=== PATIENT | female | born 1955 | race Caucasian/White ===

== ENCOUNTER 2022-01-27 20:10 | Inpatient (IN) | payer OTHER ==
[~2022-01-27] VITALS: Ht 152.4 cm; Wt 95.3 kg
--- NOTE | 2022-01-27 16:49 | NUR ---
DC PLANNIN YRS OLD FEMALE PATIENT WAS ADMITTED FROM HOME WITH A DX OF NSTEMI. PATIENT HAS A HX OF DM, CHRONIC KIDNEY DISEASE AND CHF. CXR SHOWED BILATERAL PULMONARY OPACITIES MAY REPRESENT PULMONARY EDEMA. RAPID COVID TEST NEGATIVE. ON BIPAP FIO2 80%. ADMINISTERED HEPARIN DRIP, IV ABX ROCEPHIN AND AZITHROMYCIN , LASIX IV AND PRECEDEX DRIP. CONSULTED WITH NEPHRO AND PULMO. DC PLAN PER PATIENT RESPOND TO THE TREATMENT. CM TO FOLLOW Addendum: 01/30/22 at 1156 by Nicol Saleh RN DC PLANNING: PATIENT INTUBATED SEDATED BY PULMO DR STREET. CONTINUED IV ABX VANCOMYCIN AND MERREM , PRECEDEX DRIP AND HEPARIN DRIP. PULMO,NEPHRO AND CARDIO FOLLOWING. CM TO FOLLOW
[~2022-01-27 20:10] MED LIST: ETOMIDATE 20 MG/10 ML VIAL IVP ONE; ROCURONIUM 50 MG/5 ML VIAL IV ONE
--- NOTE | 2022-01-27 20:10 | NUR ---
PT BRITTANI ALS. TAKEN TO BED 10
--- NOTE | 2022-01-27 20:12 | NUR ---
Respiratory Therapist at bedside for respiratory intervention.
[2022-01-27 20:17] VITALS: BP 102/83
[2022-01-27 20:18] VITALS: BP 201/114
[2022-01-27] MEDS ORDERED: cefTRIAXone 1,000 MG in DEXT 5% MINI-BAG PLUS 50 ML IV ONE (20:35)
[2022-01-27] MEDS ORDERED: FUROSEMIDE 40 MG/4 ML VIAL IVP ONE ×3 (20:35→21:30)
--- NOTE | 2022-01-27 20:48 | NUR ---
CONTACT INFO LEFT BY VANNA MAN
--- NOTE | 2022-01-27 20:52 | NUR ---
2018 placed pt on bipap with settings of ipap 14 epap 6 rr 14 fio2 100%. pt placed on size medium mask. pt bs bilat rales
[2022-01-27] MEDS ORDERED: cefTRIAXone 1,000 MG VIAL ONE (21:07)
[2022-01-27 21:08] LABS: BASOPHILS # (AUTO) 0.2 K/uL (0.00-0.22); BASOPHILS % (AUTO) 1.2 % (0.0-2.0); EOSINOPHILS # (AUTO) 0.6 K/uL (0-0.4); EOSINOPHILS % (AUTO) 3.1 % (0.0-4.0); HEMATOCRIT 43.8 % (36-48); HEMOGLOBIN 13.9 g/dL (12.0-16.0); LYMPHOCYTES # (AUTO) 7.5 K/uL (2.5-16.5); LYMPHOCYTES % (AUTO) 38.8 % (20.5-51.1); MEAN CORPUSCULAR HEMOGLOBIN 28 pg (27-31); MEAN CORPUSCULAR HGB CONC 32 g/dL (33-37); MEAN CORPUSCULAR VOLUME 87.6 fL (80-94); MONOCYTES # (AUTO) 0.9 K/uL (0.8-1.0); MONOCYTES % (AUTO) 4.8 % (1.7-9.3); NEUTROPHILS # (AUTO) 10.1 K/uL (1.8-7.7); NEUTROPHILS % (AUTO) 52.1 % (42.2-75.2); PLATELET COUNT (AUTO) 365 K/uL (140-450); RED CELL DISTRIBUTION WIDTH 16.2 % (11.6-13.7); WHITE BLOOD COUNT (AUTO) 19.3 K/uL (4.8-10.8)
--- NOTE | 2022-01-27 21:21 | NUR ---
ERMD NOTIFIED OF SATTING 88% RT AT BEDSIDE
[2022-01-27 21:30] LABS: ALBUMIN 2.6 g/dL (3.4-5.0); ANION GAP 25.2 (8-16); CARBON DIOXIDE 12.9 mmol/L (21-32); CREATININE 2.2 mg/dL (0.6-1.3); POTASSIUM 4.1 mmol/L (3.5-5.1); TOTAL BILIRUBIN 0.4 mg/dL (0.0-1.0)
[2022-01-27] MEDS ORDERED: LORazepam 2 MG/ML VIAL IVP ONE (21:30)
[2022-01-27] MEDS ORDERED: INSULIN REGULAR, HUMAN 100 UNIT/ML VIAL IVP ONE (21:40)
[2022-01-27 21:55] VITALS: BP 172/88
--- NOTE | 2022-01-27 22:09 | NUR ---
PT GAVE PERMISSION TO GIVE UPDATES TO TAWANDA, VANNA. [phone]
[2022-01-27] MEDS: AZITHROMYCIN 500 MG in DEXTROSE 5% 250 ML IV SCH (22:15)
[2022-01-27] MEDS ORDERED: ONDANSETRON 4 MG/2 ML VIAL IVP PRN (22:15)
[2022-01-27] MEDS ORDERED: POTASSIUM CHLORIDE 10 MEQ TABER PO PRN (22:15)
[2022-01-27] MEDS ORDERED: ACETAMINOPHEN 325 MG TAB PO PRN (22:15)
[2022-01-27] MEDS ORDERED: HYDROcodone/APAP 5/325 MG 1 TAB TAB PO PRN (22:15)
[2022-01-27] MEDS ORDERED: MAGNESIUM OXIDE 400 MG TAB PO PRN (22:15)
[2022-01-27] MEDS ORDERED: POTASSIUM CHL 40 MEQ/ D5-1/2NS 1,000 ML IV SCH (22:15)
[2022-01-27] MEDS ORDERED: DEXTROSE 50% 50 ML SYR IVP PRN (22:20)
[2022-01-27] MEDS ORDERED: INSULIN LISPRO SLIDING SCALE 100 UNITS/ML VIAL SUBQ PRN (22:20)
[2022-01-27] MEDS ORDERED: FURO20TA8 PO (22:31)
[2022-01-27] MEDS ORDERED: FERR325E14 PO (22:31)
[2022-01-27] MEDS ORDERED: ISOS60TE70 PO (22:31)
[2022-01-27] MEDS ORDERED: FEBU40TA PO (22:31)
[2022-01-27] MEDS ORDERED: ASPI-1822 PO (22:31)
[2022-01-27] MEDS ORDERED: SIMV-372 PO (22:31)
[2022-01-27] MEDS ORDERED: LOSA100T1 PO (22:31)
[2022-01-27] MEDS ORDERED: NITROGLYCERIN 0.4 MG TAB SL ONE (22:35)
--- NOTE | 2022-01-27 23:00 | NUR ---
ADMITTED PT FROM ER. REPORT GIVEN BY HELP DESK SUPPORT VERONICA. PT'S A/O, ON BIPAP 14/6, BUR 14, FI02 100% SATS >95%. PT ADMITTED FOR NSTEMI, AFIB ON THE MONITOR CONTROLLED WITH HR OF 90, SBP 150'S, PT DENIES PAIN. GIVEN CHG BATH. ON PUREWICK. ORIENTED TO ROOM/UNIT. NO SKIN BREAKDOWN. JUST SKIN DISCOLORATION ON ALL BODY AREAS. 2330: DR. MONET FROM ER ORDERED MIDLINE PT'S HARD STICK. 2335: PHONE CALL TO DR HINTON, CHEF SAUCIER FOR TORY FRAUSTO TO INSERT PICC LINE/MIDLINE AND DE LOS SANTOS CATHETER. 2355: MIDLINE ON THE CAITLYN 2X LUMEN INSERTED BY PICC LINE REGINA WU.
--- NOTE | 2022-01-27 23:00 | NUR ---
ASSISTED IN TRANSPORT OF PT ON BI-PAP FROM ER BED #10 TO ICU BED #2. PT IS TOLERATING BI-PAP AND IS IN NO DISTRESS AT THIS TIME. TRANSFER OF CARE TO RT MARY ANN, AT THIS TIME.
--- NOTE | 2022-01-27 23:02 | NUR ---
Patient will be admitted to care of DR LARIOS. Admited to ICU. Will go to room ICU 2. Belongings list completed. Report to TATIANA TAPIA.
[2022-01-27] MEDS ORDERED: AZITHROMYCIN 500 MG INJ VIAL IV ONE (23:44)
[2022-01-28] VITALS (22 sets, daily range): BP systolic 100–156; BP diastolic 35–87
[2022-01-28] MEDS ORDERED: NITROGLYCERIN 0.4 MG TAB SL ONE (00:51)
--- NOTE | 2022-01-28 01:00 | NUR ---
0045: BLOOD SUGAR CHECKED RESULT= OR 0100: RE CHECKED BLOOD SUGAR = OR INITIATED PROTOCOL, ORDERED LAB DRAW
[2022-01-28 01:23] LABS: ANION GAP 22.8 (8-16); CARBON DIOXIDE 17.3 mmol/L (21-32); CREATININE 2.4 mg/dL (0.6-1.3); POTASSIUM 5.1 mmol/L (3.5-5.1)
[2022-01-28] MEDS ORDERED: hePARIN / DEXT 5% PREMIX 250 ML IV SCH (01:35)
[2022-01-28] MEDS ORDERED: HEPARIN PER PHARMACY MC PRN (01:35)
[2022-01-28] MEDS ORDERED: INSULIN LANTUS 100 UNITS/ML 10 ML VIAL SUBQ SCH (01:35)
--- NOTE | 2022-01-28 01:35 | NUR ---
PHONE CALL TO DR HINTON, IDENTIFICATION CLERK FOR DR LARIOS.MADE AWARE FAMILY AT BEDSIDE, PRIMARY RN TATIANA TOOK BLOOD SUGAR,IT READS "HI" ON THE MACHINE TWICE,BMP ORDERED, RESULT CAME BACK 692.ORDERED TO GIVE 15 UNITS LANTUS X ONE DOSE ONLY,NOW.ALSO NOTIFED DR HINTON REGARDING TROPONIN LEVEL 5758, SALES ENGINEERING MANAGER ALREADY PAGED DR JAIMES, AWAITING CALL BACK, MD AWARE PT HAS HEPARIN SUBQ Q12HRS, CHANGED HEPARIN DRIP PER PHARMACY.TATIANA AWARE
--- NOTE | 2022-01-28 01:36 | NUR ---
LOWERED FIO2 TO 80%. SATS 100%.
[2022-01-28] MEDS: MORPHINE SULFATE 4 MG/ML SYR IVP PRN ×3 (02:49→17:01)
[2022-01-28] MEDS ORDERED: hePARIN / DEXT 5% PREMIX 250 ML IV ONE (02:51)
[2022-01-28] MEDS ORDERED: hePARIN / DEXT 5% PREMIX 250 ML IV PRN (03:06)
[2022-01-28] MEDS ORDERED: ALBUTEROL SULFATE/IPRATROPIU 3 ML SOL IH PRN (03:10)
--- NOTE | 2022-01-28 03:10 | NUR ---
dr brito called to get order for breathing tx. dr mustapha mendoza q4prn
[2022-01-28] MEDS ORDERED: ALBUTEROL SULFATE/IPRATROPIU 3 ML SOL IH ONE (03:13)
--- NOTE | 2022-01-28 03:44 | NUR ---
0332 stat ekg done. results given to arias
--- NOTE | 2022-01-28 03:55 | NUR ---
LATANYA WADSWORTH CALLED. READ EKG RESULTS, REPORTED PT'S CARDIAC STATUS AND OTHER RELATED UPDATES. ORDERED TO STOP IVF, GIVE ONE TIME LASIX 40MG IVP, ORDERED INPATIENT STATUS, CODE STATUS MODIFIED NO INTUBATION SIGNED BY PT'S DAUGHTER [place]/PRIMARY EMERGENCY CONTACT. 0410: ROLL FORGER CALLED DR. JOHNSON/GUNNAR FOR AN UPDATES AND ALSO GIVEN AN ORDER TO ROLL FORGERREGINA GAVIRIA..
[2022-01-28] MEDS ORDERED: FUROSEMIDE 20 MG/2 ML VIAL IVP SCH (04:05)
[2022-01-28] MEDS ORDERED: INSULIN REGULAR, HUMAN 100 UNIT/ML VIAL SUBQ SCH (04:10)
--- NOTE | 2022-01-28 04:10 | NUR ---
PHONE CALL MADE TO DR JOHNSON, PULMO MECHANICAL TEST ENGINEER, UPDATED ON PTS PRESENT CONDITION.MADE AWARE THAT PT WAS ADMITTED LAST NIGHT TELEMETRY STATUS DX NSTEMI, PT IS ON CONTINUOUS BIPAP FIO2 100%.TELE STATUS CHANGED TO ICU.ALSO NOTIFIED DR JOHNSON RE; BLOOD SUGAR CHECK , BMP READING 692, GIVEN [address] HINTON BUT PER AVILA MARTINEZ, PTS DAUGHTER, PT IS RECEIVING REGULAR INSULIN 30 UNITS IF BS IS ON THE 300'S AND 40 TO 50 UNITS IF MORE THAT 400 BLOOD SUGAR, DR JOHNSON ORDERED TO GIVE 20 UNITS REGULAR INSULIN NOW.ALSO ORDERED ABG AT 0700 AND CXR.TATIANA TAPIA AWARE
--- NOTE | 2022-01-28 04:14 | NUR ---
0250 UNABLE TO GET ABG. [address] DAVISON
--- NOTE | 2022-01-28 04:25 | NUR ---
FAMILIES AT THE BEDSIDE. DR. JOHNSON ORDERED TO GIVE 20 UNITS OF REGULAR INSULIN FOR "HI" FINGER STICK GLUCOSE READING. CONTINUE MONITOR.
[2022-01-28 05:34] LABS: BASOPHILS # (AUTO) 0.1 K/uL (0.00-0.22); BASOPHILS % (AUTO) 0.2 % (0.0-2.0); HEMATOCRIT 39.5 % (36-48); HEMOGLOBIN 12.1 g/dL (12.0-16.0); LYMPHOCYTES # (AUTO) 0.7 K/uL (2.5-16.5); MEAN CORPUSCULAR HEMOGLOBIN 27 pg (27-31); MEAN CORPUSCULAR HGB CONC 31 g/dL (33-37); MEAN CORPUSCULAR VOLUME 89.5 fL (80-94); MONOCYTES # (AUTO) 1.7 K/uL (0.8-1.0); MONOCYTES % (AUTO) 4.9 % (1.7-9.3); NEUTROPHILS # (AUTO) 31.6 K/uL (1.8-7.7); NEUTROPHILS % (AUTO) 92.9 % (42.2-75.2); PLATELET COUNT (AUTO) 317 K/uL (140-450); RED BLOOD CELL COUNT(AUTO) 4.42 MIL/uL (4.20-5.40); RED CELL DISTRIBUTION WIDTH 15.8 % (11.6-13.7)
--- NOTE | 2022-01-28 07:03 | NUR ---
ENDORSED PT TO AM RN PAM TO ASSUME PLAN OF CARE. FAMILIES AT THE BEDSIDE. RESTING COMFORTABLE WITH STABLE VITAL SIGNS.
--- NOTE | 2022-01-28 07:10 | NUR ---
RECEIVED BEDSIDE REPORT FROM ANNA, INVENTORY CONTROLLER, FOR CONTINUITY OF CARE. PT A/OX4, PUPIL ROUND REACTIVE TO LIGHT IN LEFT EYE AND CLOUDY/BLUE HAZE IN RIGHT EYE. SLOVENIAN SPEAKING ONLY. BIPAP IN PLACE, FIO2 80%, IPAP 14, EPAP 6, R 14. SATURATION 96%. ATRIAL FLUTTER ON MONITOR. MIDLINE TO CAITLYN INFUSING HEPARIN DRIP AT 1000 UNITS/HR AND NS TKO. BOWEL SOUNDS HYPOACTIVE. F/C TO GRAVITY DRAINING CLEAR LIGHT YELLOW URINE. MODERATE WEAKNESS THROUGHOUT. STANDARD PRECAUTION. CALL LIGHT WITHIN REACH, BED LOCKED AND IN LOWEST POSITION.
[2022-01-28] MEDS ORDERED: BLOOD GLUCOSE MONITORING 1 DEV DEV FS SCH (07:30)
[2022-01-28] MEDS: ASPIRIN 81 MG TAB.CHEW PO SCH (08:19)
[2022-01-28] MEDS: DOCUSATE SODIUM 100 MG GELCAP PO SCH (08:19)
[2022-01-28] MEDS: ATORVASTATIN 20 MG TAB PO SCH (08:19)
--- NOTE | 2022-01-28 08:45 | NUR ---
MESSAGED Igor SENA CONCERNING BLOOD GLUCOSE GREATER THAN 600 AND GAP 22.8. ORDERED TO START DKA PROTOCOL WITH INSULIN DRIP.
[2022-01-28] MEDS ORDERED: DEXT 5% / NACL 0.45% 1,000 ML IV SCH (08:50)
[2022-01-28] MEDS: BLOOD GLUCOSE MONITORING 1 DEV DEV FS SCH ×16 (08:50→23:50)
[2022-01-28] MEDS ORDERED: NACL 0.9% 1,000 ML IV SCH (08:50)
[2022-01-28] MEDS ORDERED: DEXTROSE 50% 50 ML SYR IVP PRN (08:50)
[2022-01-28] MEDS ORDERED: FUROSEMIDE 40 MG/4 ML VIAL IVP SCH (09:00)
--- NOTE | 2022-01-28 09:50 | NUR ---
SEEN AND EXAMINED BY Raven JONES. ORDERED TO DC FLUIDS FROM DKA PROTOCOL AND INFUSE INSULIN WITHOUT FLUIDS DUE TO FLUID OVERLOAD. ALSO ORDERED TO CHANGE LASIX FROM BID TO TID.
--- NOTE | 2022-01-28 10:07 | NUR ---
PATIENT HAS BEEN SCREENED AND CATEGORIZED HIGH NUTRITION RISK. PATIENT WILL BE SEEN WITHIN 1-2 DAYS OF ADMISSION. 01/27/22-01/29/22 RE[address] BY [address]ELY TAME[address] RD
[2022-01-28 10:20] LABS: PROTHROMBIN TIME 11.7 secs (10.8-13.4)
[2022-01-28] MEDS: INSULIN REGULAR, HUMAN 100 UNIT in NACL 0.9% 100 ML IV SCH ×4 (10:30→20:28)
--- NOTE | 2022-01-28 10:30 | NUR ---
STARTED INSULIN DRIP PER MD ORDERS. INITIATED 9 UNIT BOLUS OF HUMULIN R IVP PER PROTOCOL. INSULIN DRIP AT 0.1 UNITS/KG/HR PER PROTOCOL AND WITHOUT FLUIDS PER MD ORDER.
--- NOTE | 2022-01-28 11:04 | NUR ---
SEEN AND EXAMINED BY Igor FARIAS WHO DISCUSSED WITH FAMILY POC AND COLLECTIVELY CHANGED CODE STATUS FROM MODIFIED CODE TO DNR.
--- NOTE | 2022-01-28 11:17 | NUR ---
PTT RESULTED AT 107.6. HEPARIN DRIP HELD FOR NOW.
--- NOTE | 2022-01-28 12:00 | NUR ---
FAMILY DECIDED TO CHANGE CODE STATUS TO FULL CODE. Igor FARIAS NOTIFIED. SEE POLST FORM IN PAPER CHART.
--- NOTE | 2022-01-28 12:20 | NUR ---
RESUMED HEPARIN DRIP AT 200 UNITS/HR PER PROTOCOL.
[2022-01-28] MEDS: FUROSEMIDE 40 MG/4 ML VIAL IVP SCH ×2 (13:07→17:01)
[2022-01-28] MEDS: LORazepam 2 MG/ML VIAL IVP PRN (13:27)
--- NOTE | 2022-01-28 14:51 | NUR ---
HEPARIN ORDER CLARIFICATION, INCREASED HEPARIN DRIP TO 800 UNITS/HR PER PROTOCOL.
[2022-01-28 15:31] LABS: ANION GAP 22.1 (8-16); CARBON DIOXIDE 14.8 mmol/L (21-32); CREATININE 3.4 mg/dL (0.6-1.3); POTASSIUM 5.9 mmol/L (3.5-5.1)
--- NOTE | 2022-01-28 15:38 | NUR ---
SAW FEEDER AT BEDSIDE FOR KIDNEY US.
--- NOTE | 2022-01-28 15:50 | NUR ---
SEEN AND EXAMINED BY DR. JAIMES.
--- NOTE | 2022-01-28 16:04 | NUR ---
SEEN AND EXAMINED BY Igor SENA NO NEW ORDERS.
[2022-01-28] MEDS: hePARIN / DEXT 5% PREMIX 250 ML IV SCH (16:40)
--- NOTE | 2022-01-28 16:40 | NUR ---
01/28/2022 RD INITIAL ASSESSMENT COMPLETED. PLEASE REFER TO NUTRITION ASSESSMENT UNDER CARE ACTIVITY FOR ESTIMATED NUTRITIONAL NEEDS. 1.WHEN IF MEDICALLY APPROPRIATE, RECOMMEND CCHO DIET 2.MONITOR NPO STATUS AND BLOOD GLUCOSE 3.RD TO FOLLOW-UP IN 3-5 DAYS PATIENT IS MODERATE RISK. BONITA SARAVIA RD
[2022-01-28 16:46] LABS: ANION GAP 19.1 (8-16); CARBON DIOXIDE 18.4 mmol/L (21-32); CREATININE 3.4 mg/dL (0.6-1.3); POTASSIUM 4.5 mmol/L (3.5-5.1)
[2022-01-28 17:03] LABS: MAGNESIUM 1.6 mg/dL (1.8-2.4); PHOSPHORUS 2.9 mg/dL (2.5-4.9)
--- NOTE | 2022-01-28 19:20 | NUR ---
ENDORSED BEDSIDE REPORT TO TITUS INDUSTRIAL THERAPIST RN, FOR CONTINUITY OF CARE.
--- NOTE | 2022-01-28 19:30 | NUR ---
RCVD PT FROM DAY RT. PT ASLEEP ON BIPAP 03/09 80% WITH SPO2 99%. NO SIGNS OF RESP DISTRESS AT THIS TIME. SKIN INTACT. NO PRN TREATMENT NEEDED. WILL CONTINUE TO MONITOR.
--- NOTE | 2022-01-28 19:40 | NUR ---
RECEIVED REPORT FROM AM SHIFT RN ONEIL. PT A&O X4. BIPAP SETTINGS 80 IPAP 15 EPAP 6. NPO DIET. DE LOS SANTOS CATHETER INTACT AND FLOWING WELL. SR TO BEDSIDE MONITOR WITH WIDE QRS. PERIPHERAL PULSES FELT TO ALL EXTREMITIES. MIDLINE TO CAITLYN. INSULIN DRIP 0.1 MCG/KG/HR/. HEPARIN DRIP 930 UI/HR. SKIN IS INTACT. NO S/SX PAIN AT THIS TIME. FLACC 0.
[2022-01-28 20:35] LABS: MAGNESIUM 1.5 mg/dL (1.8-2.4); PHOSPHORUS 2.8 mg/dL (2.5-4.9)
[2022-01-28 20:42] LABS: ANION GAP 15.8 (8-16); CARBON DIOXIDE 21.3 mmol/L (21-32); CREATININE 3.2 mg/dL (0.6-1.3); POTASSIUM 4.1 mmol/L (3.5-5.1)
[2022-01-28] MEDS: AZITHROMYCIN 500 MG in DEXTROSE 5% 250 ML IV SCH (21:27)
--- NOTE | 2022-01-28 21:34 | NUR ---
PHONE CALL TO CAFE OPERATOR, DIRECTOR HEALTH IS DR SUMANTH HAJI; MADE AWARE THAT BUN 65 AND CREATININE 3.2; NO NEW ORDERS FOR THAT LAB RESULT, ALSO MENTIONED TO DR HAJI REGARDING MAGNESIUM LEVEL 1.5, PT RECEIVED MAG 0X AT 1716 BUT THE PRN ORDER IS ONLY FOR MAGNESIUM 1.6 TO 1.8, PER SUMANTH CASTELLANOS "THIS TIME OF THE NIGHT IS NOT THE TIME TO REPLACE MAGNESIUM".
--- NOTE | 2022-01-28 23:00 | NUR ---
PM MEDS GIVEN. PT REPOSITIONED.
--- NOTE | 2022-01-28 23:59 | NUR ---
CRITICAL LAB VALUE REPORTED PTT 68.8 AND TROPONIN >14292. PAGED AND SPOKE TO DR. JAIMES. NO NEW ORDERS. STATED TO CONTINUE HEPARIN DRIP PER PROTOCOL.
[2022-01-29] VITALS (24 sets, daily range): BP systolic 97–161; BP diastolic 26–82
--- NOTE | 2022-01-29 | NUR ---
RECEIVED REPORT FROM DIALLO TAPIA PT IS N BI PAP AND CONTINOUSLY REACHING FOR THE CONNECTION . DIALLO HAD TO CONSTRAIN HER HDS MULTIPLE TIMES WHILE GIVING REPORT. SHORTLY AFTER REPORT WAS RECEIVED AT 1930 PT'S BI PAP STARTED RO LUCIA. UPON CHECKING THE REASON FOR THE ALARM ; PT HAD REMOVED THE BI PAP MASK COMPLETELY..IT WAS VERY DIFFICLUT REPLACING THE MASK PT PROVED TO BE VERY STRONG. PT HAD TOB RESTRAINED TEMPORARILY IN ORDER TO REPLACE THE BI PAP MASK THE PRECEDEX WAS INCRESED TTO 1MCG FROM /5MCG BUT IT DIDN'T HELP TO CALM PT DOWN. PAYAM WAS ESCORTED IN AND FOUND PT IN RESTRAINTS. EXPLAINED IR WAS A TEMPORARY MEASURE USED RO GET PT BACK ON THE BIPAP. THE RESTRAINRS WERE REMOVED AND PT WAS CALMED DOWN BY HER FAMILY MEMBERS.
--- NOTE | 2022-01-29 00:32 | NUR ---
PT REQUESTING A BREAK FROM TH BIPAP. PT STABLE WITH SPO2 98% ON 03/09 80%. PLACED PT ON NONREBREATHER. PT HR 87 WITH SPO2 93-94%. WILL CONTINUE TO MONITOR.
--- NOTE | 2022-01-29 00:44 | NUR ---
FAMILY AT BEDSIDE PT SPO2 DROPPED TO 87% PLACED PT BACK ON BIPAP 03/09 80% WITH SPO2 RETURNED TO 95%
[2022-01-29 00:47] LABS: ANION GAP 18.4 (8-16); CARBON DIOXIDE 19.6 mmol/L (21-32); CREATININE 3.2 mg/dL (0.6-1.3)
[2022-01-29 00:48] LABS: MAGNESIUM 1.5 mg/dL (1.8-2.4); PHOSPHORUS 2.5 mg/dL (2.5-4.9)
[2022-01-29] MEDS: BLOOD GLUCOSE MONITORING 1 DEV DEV FS SCH ×14 (01:19→21:18)
[2022-01-29 05:34] LABS: BASOPHILS # (AUTO) 0.1 K/uL (0.00-0.22); BASOPHILS % (AUTO) 0.5 % (0.0-2.0); HEMATOCRIT 34.3 % (36-48); HEMOGLOBIN 11.6 g/dL (12.0-16.0); LYMPHOCYTES % (AUTO) 7.3 % (20.5-51.1); MEAN CORPUSCULAR HEMOGLOBIN 27 pg (27-31); MEAN CORPUSCULAR HGB CONC 34 g/dL (33-37); MEAN CORPUSCULAR VOLUME 81.3 fL (80-94); MONOCYTES # (AUTO) 1.9 K/uL (0.8-1.0); MONOCYTES % (AUTO) 6.7 % (1.7-9.3); NEUTROPHILS # (AUTO) 23.6 K/uL (1.8-7.7); NEUTROPHILS % (AUTO) 85.5 % (42.2-75.2); PLATELET COUNT (AUTO) 258 K/uL (140-450); RED BLOOD CELL COUNT(AUTO) 4.22 MIL/uL (4.20-5.40); RED CELL DISTRIBUTION WIDTH 15.4 % (11.6-13.7)
[2022-01-29 05:43] LABS: WHITE BLOOD COUNT (AUTO) 27.7 K/uL (4.8-10.8)
[2022-01-29 06:27] LABS: ALBUMIN 2.3 g/dL (3.4-5.0); ANION GAP 17.4 (8-16); CREATININE 3.2 mg/dL (0.6-1.3); POTASSIUM 4.4 mmol/L (3.5-5.1); TOTAL BILIRUBIN 0.5 mg/dL (0.0-1.0)
[2022-01-29 06:29] LABS: MAGNESIUM 1.6 mg/dL (1.8-2.4); PHOSPHORUS 3.2 mg/dL (2.5-4.9)
[2022-01-29] MEDS: MORPHINE SULFATE 4 MG/ML SYR IVP PRN (06:51)
--- NOTE | 2022-01-29 07:30 | NUR ---
RECEIVED REPORT FROM TRANSLITERATOR NURSE
--- NOTE | 2022-01-29 08:00 | NUR ---
FAMILY AT BEDSIDE ASSISTING WITH PATIENT. PATIENT CONTINUOUSLY ATTEMPTING TO REMOVE BIPAP MASK. RASS +1 EXPLAINED THE IMPORTANCE OF BIPAP BUT PATIENT STATES "DOES NOT LIKE THE MASK ON FACE", TEACHING PATIENT AND FAMILY AT BEDSIDE COMPLETED REGARDING CHEST PAIN, RESTLESSNESS, AND TURNING EVERY TWO HOURS.
[2022-01-29] MEDS: hePARIN / DEXT 5% PREMIX 250 ML IV SCH (09:10)
[2022-01-29] MEDS: DOCUSATE SODIUM 100 MG GELCAP PO SCH (09:12)
[2022-01-29] MEDS: ASPIRIN 81 MG TAB.CHEW PO SCH (09:12)
[2022-01-29] MEDS: FUROSEMIDE 40 MG/4 ML VIAL IVP SCH ×2 (09:13→21:34)
[2022-01-29] MEDS: ATORVASTATIN 20 MG TAB PO SCH (09:13)
[2022-01-29] MEDS: INSULIN REGULAR, HUMAN 100 UNIT in NACL 0.9% 100 ML IV SCH ×2 (10:10)
--- NOTE | 2022-01-29 12:07 | NUR ---
LAB AT BEDSIDE FOR BMP, MAG, PHOS AND PTT PER MD ORDERS
[2022-01-29] MEDS: LORazepam 2 MG/ML VIAL IVP PRN ×2 (12:15→22:07)
--- NOTE | 2022-01-29 12:20 | NUR ---
DR MONTENEGRO AT BEDSIDE EVALUATING PATIENT. STATES HOLD THE ATIVAN IVP AND HE WILL START THE PRECEDEX DRIP FOR AGITATION/RESTLESSNESS.
--- NOTE | 2022-01-29 12:35 | NUR ---
RECEIVED ORDERS TO DISCONTINUE INSULIN DRIP
--- NOTE | 2022-01-29 12:37 | NUR ---
DISCONTINUED INSULIN DRIP. UPDATED FAMILY ON PLAN OF CARE.
[2022-01-29 12:45] LABS: CREATININE 3.1 mg/dL (0.6-1.3)
--- NOTE | 2022-01-29 12:45 | NUR ---
RECEIVED CRITICAL LAB VALUE FROM SHOE FOLDER PTT 60.4, NORMAL VALUE FOR HEPARIN DRIP AT 930 UNITS/HOUR, NO CHANGE IN DRIP RATE
[2022-01-29 12:49] LABS: MAGNESIUM 1.6 mg/dL (1.8-2.4); PHOSPHORUS 3.4 mg/dL (2.5-4.9)
[2022-01-29] MEDS: DEXMEDETOMIDINE HCL 400 MCG in NACL 0.9% 96 ML IV PRN ×2 (12:50→22:12)
[2022-01-29] MEDS: INSULIN LANTUS 100 UNITS/ML 10 ML VIAL SUBQ SCH ×2 (13:01→21:33)
[2022-01-29] MEDS: BRIMONIDINE TARTRATE 0.2% OP 5 ML BTL OP SCH ×2 (13:23→17:09)
--- NOTE | 2022-01-29 14:00 | NUR ---
CARDIAC RHYTHM CHANGED TO NSR HR 80'S. RASS 0 TO -1 RESTING QUIETLY.
--- NOTE | 2022-01-29 14:40 | NUR ---
NV PLANNING SW OUTREACHED TO PATIENTS EMERGENCY CONTACT, MAGDA MARTINEZ, DAUGHTER, TO GATHER COLLATERAL INFORMATION. [place] REPORTS PATIENT RESIDES IN A SINGLE STORY HOME WITH HER FAMILY (2 SONS AND DIL) AT THE ADDRESS LISTED ON FILE. [place] IDENTIFIES HERSELF AND PTS DAUGHTER, PAM MARTINEZ, EMERGENCY CONTACTS. PATIENT IS REPORTED TO MEET WITH PCP DR. MADRID REGULARLY (EVERY THREE MONTHS) , LAST VISIT; "LAST MONTH ". PATIENT IS REPORTED TO OCCASIONALLY NONCOMPLIANT WITH MEDICATIONS SHE PREFERS NOT TO TAKE, HOWEVER, [place] REPORTS KEEPING UP WITH PTS MEDICATION REQUIRED. [place] DENIES BARRIERS IN ACCESS TO NEEDED MEDICATIONS. PATIENT RECEIVES MEDICATION FROM [facility] [address] [facility] [place], WHEN NEEDED. PATIENT IS REPORTED TO BE AMBULATORY WITH DME ASSISTANCE; FWW HOWEVER, [place] REPORTS THAT USE OF WALKER HAS BECOME INCREASINGLY DIFFICULT FOR PT. PATIENT REQUIRES ASSISTANCE WITH ALL ADL'S WHICH MAGDA AIDS PT WITH. PATIENT HAS IHSS HRS OF 43HRS/MONTHLY. PATIENT IS REPORTED TO HAVE DIABETES THAT HAS BEEN DIFFICULT TO MANAGE. PERMAGDA. [place] REPORTS RECENTLY WORKING WITH PCP WHO HAS MODIFIED MEDICATION LAST WEEK. [place] REPORTS ADEQUATE FOOD SOURCE IN THE HOME AND DENIES BARRIERS IN ACCESS TO FOOD. PER MAGDA NV PLAN IS TO RETURN HOME WITH FAMILY PROVIDING TRANSPORTATION WHEN MEDICALLY STABLE. RICKEY INQUIRED ON RESOURCES NEEDED, PT DECLINED. [place] DENIES PT HAS HX OF HH SERVICES, SNF PLACEMENT, DIALYSIS [place] OR HOSPICE CARE. Addendum: 01/29/22 at 1445 by Valerie CARPENTER Amended: Links added. Addendum: 01/30/22 at 1323 by Valerie Wilson SS MET WITH PTS DAUGHTER, PAM MARTINEZ TO OFFER CONDOLENCES AND PROVIDE FAMILY WITH SUPPORT NEEDED. FAMILY APPEARS TO BE GRIEVING APPROPRIATELY. SW ACTIVELY LISTENED PAM REPORTS THAT MOTHER (PT) HAD PREARRANGED ARRANGEMENTS. MAGDA (PT'S DAUGHTER) IS REPORTED TO BE GATHERING MOTHERS BELONGINGS FROM HOME TO IDENTIFY MORTUARY PT HAD ARRANGEMENTS WITH. PT'S DAUGHTERS APPEAR TO HAVE ADEQUATE FRIEND AND FAMILY SUPPORT AND ARE AT HOSPITAL TAKING TURNS TO BE AT PT'S BEDSIDE. HIGHLY ENCOURAGED FAMILY TO UTILIZE SW A RESOURCE, FAMILY IN AGREEMENT, HOWEVER, DECLINED NEED FOR RESOURCES AT THIS TIME. SW TO FOLLOW NEEDED.
--- NOTE | 2022-01-29 15:15 | NUR ---
DR KOHLI AT BEDSIDE EVALUATING PATIENT. UPDATED FAMILY AT BEDSIDE.
--- NOTE | 2022-01-29 15:30 | NUR ---
BIPAP SETTINGS TITRATED DOWN TO 12/5 14RR 55%. PT TOLERATES THESE SETTINGS WELL.
--- NOTE | 2022-01-29 16:15 | NUR ---
PATIENT ATTEMPTING TO TAKE MASK OFF FORM BIPAP, INCREASED PRECEDEX TO 0.4 MCG/KG/HR TO RASS+2, WILL CONTINUE CLOSE MONITORING
--- NOTE | 2022-01-29 16:45 | NUR ---
PATIENT INTERMITTENTLY AGITATION RASS +1 INCREASED PRECEDEX TO 0.5 MCG/KG/HR PER MD ORDERS.
[2022-01-29] MEDS: INSULIN LISPRO SLIDING SCALE 100 UNITS/ML VIAL SUBQ PRN ×2 (17:06→21:26)
[2022-01-29] MEDS ORDERED: MAG SULF 2000 MG/WATER PREMIX 50 ML IV SCH (18:00)
--- NOTE | 2022-01-29 19:20 | NUR ---
RECEIVED REPORT FROM PAM TAPIA. PT IS AWAKE AMD WITHOUT PAIN AT THIS TIME . SHE'S REPORTE TO HAVE A GOOD APPETITE AND SHE ATE 75-90% OF HER DINNER SHE WAS REMANDED TO ICU FROM SURGERY; SHE HAD AN INFECTED KIDNEY AND RECEIVED A CYSTOSCOPY. VITAL SIGNS ARE STALE AND SHE'S AFEBRILE. HER IV ACCESS IS IN THE RAC 20 GAUGE. SHE WANTS IT REMOVED BUT IT FLUSHES FINE WITH A GOOD BLOOD RETURN. SHE CONSENTED TO KEEP THE IV SITE. SHE HAS A DE LOS SANTOS CATH IN PLACE DRAINING STRAW COLORED URINE . Addendum: 01/30/22 at 0551 by Agency 10 REGINA TAPIA NOTE ENTERE ON THE WRONG PT
--- NOTE | 2022-01-29 19:25 | NUR ---
REPORT GIVEN TO ANIME ARTIST
[2022-01-29] MEDS: AZITHROMYCIN 500 MG in DEXTROSE 5% 250 ML IV SCH (21:37)
[2022-01-30] VITALS (12 sets, daily range): BP systolic 94–149; BP diastolic 44–74
[2022-01-30] MEDS ORDERED: DEXMEDETOMIDINE HCL 100 MCG/ML 2 ML VIAL IV ONE ×3 (01:36→09:01)
[2022-01-30] MEDS: DEXMEDETOMIDINE HCL 400 MCG in NACL 0.9% 96 ML IV PRN ×3 (01:45→09:05)
--- NOTE | 2022-01-30 03:00 | NUR ---
LA REMAINS AWAKE IN SPITE OF THE AMBIEN GIVEN . SHE SAID HER PILLOW WAS RO HARD AN RHE LUMPS UNDER HER FROM THE PAS AND PULL SHEET. ALL REMOVED AND A CLEAN PAD REPLACED. SHE THEN COMPLAINED OF PAIN AT THE SURGICAL SITE ; NORO WAS GIVEN AND THE PILLOW WAS CHANGED. SHE SMILED AND BRADLEY THANK YOU . Addendum: 01/30/22 at 0532 by Agency Reid TAPIA RN NOT ENTERED ON WRONG PATIENT
[2022-01-30 06:22] LABS: HEMATOCRIT 30.4 % (36-48); HEMOGLOBIN 9.7 g/dL (12.0-16.0); LYMPHOCYTES % (AUTO) 5.5 % (20.5-51.1); MEAN CORPUSCULAR HEMOGLOBIN 27 pg (27-31); MEAN CORPUSCULAR HGB CONC 32 g/dL (33-37); MEAN CORPUSCULAR VOLUME 84.3 fL (80-94); MONOCYTES # (AUTO) 0.9 K/uL (0.8-1.0); MONOCYTES % (AUTO) 4.9 % (1.7-9.3); NEUTROPHILS # (AUTO) 16.2 K/uL (1.8-7.7); NEUTROPHILS % (AUTO) 89.6 % (42.2-75.2); PLATELET COUNT (AUTO) 202 K/uL (140-450); RED CELL DISTRIBUTION WIDTH 15.8 % (11.6-13.7); WHITE BLOOD COUNT (AUTO) 18.1 K/uL (4.8-10.8)
[2022-01-30 06:45] LABS: ALBUMIN 1.9 g/dL (3.4-5.0); ANION GAP 21.4 (8-16); CARBON DIOXIDE 17.8 mmol/L (21-32); POTASSIUM 5.2 mmol/L (3.5-5.1); TOTAL BILIRUBIN 0.5 mg/dL (0.0-1.0)
[2022-01-30 06:56] LABS: CREATININE 4.1 mg/dL (0.6-1.3)
[2022-01-30] MEDS ORDERED: NACL 0.9% 1,000 ML IV SCH (07:20)
[2022-01-30] MEDS ORDERED: BLOOD GLUCOSE MONITORING 1 DEV DEV FS SCH ×2 (07:20→12:00)
[2022-01-30] MEDS ORDERED: DEXTROSE 50% 50 ML SYR IVP PRN (07:20)
[2022-01-30] MEDS ORDERED: DEXT 5% / NACL 0.45% 1,000 ML IV SCH (07:20)
--- NOTE | 2022-01-30 07:36 | NUR ---
CRITICAL LABS REPORTED TO VIA TEXT .HE WILL TALK WITH CURT.
--- NOTE | 2022-01-30 07:40 | NUR ---
Received report on pt. Pt currently sedated on precedex, arousable, on bipap. Pt also receiving heparin drip, rate adjusted to protocol. Dillon in place draining urine to gravity. Pt's daughter at bedside.
[2022-01-30] MEDS ORDERED: INSULIN REGULAR, HUMAN 100 UNIT in NACL 0.9% 100 ML IV SCH ×2 (08:00)
[2022-01-30] MEDS: FUROSEMIDE 40 MG/4 ML VIAL IVP SCH (08:39)
[2022-01-30] MEDS ORDERED: VANCOMYCIN 1GM/DEXT 5% PREMIX 200 ML IV SCH (08:40)
[2022-01-30] MEDS ORDERED: VANCOMYCIN PER PHARMACY MC PRN (08:40)
[2022-01-30] MEDS: BRIMONIDINE TARTRATE 0.2% OP 5 ML BTL OP SCH (08:40)
[2022-01-30] MEDS: INSULIN LISPRO SLIDING SCALE 100 UNITS/ML VIAL SUBQ PRN (08:43)
[2022-01-30] MEDS ORDERED: INSULIN REGULAR, HUMAN 100 UNIT/ML VIAL IVP STA (08:46)
[2022-01-30] MEDS ORDERED: INSULIN LANTUS 100 UNITS/ML 10 ML VIAL SUBQ SCH (09:00)
[2022-01-30] MEDS: DOCUSATE SODIUM 100 MG GELCAP PO SCH (09:00)
[2022-01-30] MEDS ORDERED: MEROPENEM 1,000 MG in NACL 0.9% 50 ML IV SCH (09:00)
[2022-01-30] MEDS: ASPIRIN 81 MG TAB.CHEW PO SCH (09:00)
[2022-01-30] MEDS: ATORVASTATIN 20 MG TAB PO SCH (09:00)
[2022-01-30] MEDS: MORPHINE SULFATE 4 MG/ML SYR IVP PRN (09:22)
--- NOTE | 2022-01-30 09:30 | NUR ---
Dr. Carr rounding on pt and discussed possible intubation with pt's family members.
[2022-01-30] MEDS ORDERED: fentaNYL citrate 0.05 MG/ML VIAL IVP PRN (09:35)
[2022-01-30] MEDS ORDERED: ETOMIDATE 20 MG/10 ML VIAL IVP SCH (09:38)
[2022-01-30] MEDS ORDERED: ROCURONIUM 50 MG/5 ML VIAL IV SCH (09:39)
--- NOTE | 2022-01-30 09:45 | NUR ---
Intubation done by Dr. Carr. NGT inserted and verified for placement. Precedex to remain off pt per Dr. Carr, new orders made.
[2022-01-30] MEDS: DOPamine 400 MG/D5W PREMIX 250 ML IV PRN ×2 (10:00→12:13)
[2022-01-30] MEDS ORDERED: VANCOMYCIN 1,500 MG in NACL 0.9% 500 ML IV SCH (10:00)
[2022-01-30] MEDS ORDERED: AMIODARONE 450 MG in DEXTROSE 5% 250 ML IV SCH (10:00)
--- NOTE | 2022-01-30 10:30 | NUR ---
ASSISTED DR. STREET IN ENDOTRACHEAL INTUBATION. VITALS STABLE T/O PROCEDURE, COLOR CHANGE POSITIVE ON EZ CAP, BREATH SOUNDS AND BILATERAL CHEST RISE OBSERVED. ACVC MODE STARTED RR 14 VT 400 PEEP 8 FIO2 100%, TOLERATING WELL INITIALLY. SPO2 BETWEEN 85-95%. ABG TO FOLLOW.
--- NOTE | 2022-01-30 11:10 | NUR ---
RESPONDED TO CODE BLUE ICU 2. COMPRESSIONS AND VENTILATION VIA AMBUBAG ADMINISTERED. ROSC ACHIEVED AFTER APPROX. 20 MINUTES. CHARGE NURSE INFORMED ME TO DNR CODE STATUS, NO FUTURE CPR ATTEMPTS INDICATED.
--- NOTE | 2022-01-30 11:10 | NUR ---
RESPONDED TO CODE BLUE IN ICU BED 2. ASSISTED ON MANUALLY BAGGING THE PATIENT VIA AMBU BAG AT 15LPM AND ASSISTED WITH CHEST COMPRESSIONS. ED PHYSICIAN AT BEDSIDE RUNNING CODE. DETAILS ON CODE SHEET.
--- NOTE | 2022-01-30 11:10 | NUR ---
Event leading to Code Blue: Pt noted with bradycardia HR 30s-40s with weak pulse, atropine IVP administered and dopamine drip started per MD order. HR remain in 30s then asystole post interventions. Larissa sanches called and compressions started, details listed on code blue form.
[2022-01-30] MEDS ORDERED: ATROPINE 1 MG/10 ML SYR IVP ONE (11:19)
[2022-01-30] MEDS ORDERED: DOPamine 400 MG/D5W PREMIX 250 ML IV ONE (11:20)
[2022-01-30] MEDS ORDERED: EPINEPHrine PFS 0.1 MG/ML SYR IVP ONE (11:23)
[2022-01-30] MEDS ORDERED: CODE BLUE PARTICIPANT 1 EA MISC MC ONE (11:23)
[2022-01-30] MEDS ORDERED: CALCIUM CHLORIDE 10% 100 MG/ML SYR IVP ONE (11:23)
[2022-01-30] MEDS ORDERED: SODIUM BICARBONATE 8.4% PFS 50 MEQ/50 ML SYR IVP ONE ×2 (11:23→11:55)
--- NOTE | 2022-01-30 12:16 | NUR ---
[facility] notified regarding patient expiration, patient is not a candidate for donation. Reference #[id number]
[2022-01-30 12:29] LABS: ANION GAP 20.7 (8-16); CARBON DIOXIDE 18.4 mmol/L (21-32); POTASSIUM 5.1 mmol/L (3.5-5.1)
--- NOTE | 2022-01-30 12:30 | NUR ---
Dr. Valerio, Dr. Mason, Dr. Carr, and Dr. Grant notified regarding patient expiration.
[2022-01-30 12:31] LABS: BASOPHILS % (AUTO) 0.1 % (0.0-2.0); HEMATOCRIT 34.6 % (36-48); HEMOGLOBIN 10.7 g/dL (12.0-16.0); LYMPHOCYTES # (AUTO) 2.7 K/uL (2.5-16.5); MEAN CORPUSCULAR HEMOGLOBIN 27 pg (27-31); MEAN CORPUSCULAR HGB CONC 31 g/dL (33-37); MONOCYTES # (AUTO) 1.3 K/uL (0.8-1.0); MONOCYTES % (AUTO) 4.7 % (1.7-9.3); NEUTROPHILS # (AUTO) 23.4 K/uL (1.8-7.7); NEUTROPHILS % (AUTO) 85.2 % (42.2-75.2); PLATELET COUNT (AUTO) 262 K/uL (140-450); RED BLOOD CELL COUNT(AUTO) 3.93 MIL/uL (4.20-5.40); RED CELL DISTRIBUTION WIDTH 16.7 % (11.6-13.7)
[2022-01-30 12:33] LABS: CREATININE 4.5 mg/dL (0.6-1.3)
[2022-01-30 12:54] LABS: WHITE BLOOD COUNT (AUTO) 27.4 K/uL (4.8-10.8)
== END 2022-01-30 12:03 | DRG 720 ==
LOC: MED 20:10 → MTU 22:19 → MIC 22:40
PROVIDERS: ADMIT Hospitalist; ATTEND Emergency Medicine
PROC: 5A09457 Assistance with Respiratory Ventilation, 24-96 Consecutive Hours, Continuous Positive Airway Pressure (ICD-10-PCS; 2022-01-27)
PROC: 5A12012 Performance of Cardiac Output, Single, Manual (ICD-10-PCS; principal; 2022-01-30)
PROC: 0BH17EZ Insertion of Endotracheal Airway into Trachea, Via Natural or Artificial Opening (ICD-10-PCS; 2022-01-30)
PROC: 05HY33Z Insertion of Infusion Device into Upper Vein, Percutaneous Approach (ICD-10-PCS; 2022-01-30)
DX: A41.9 Sepsis, unspecified organism (principal); J96.01 Acute respiratory failure with hypoxia; I46.9 Cardiac arrest, cause unspecified; I21.4 Non-ST elevation (NSTEMI) myocardial infarction; I50.23 Acute on chronic systolic (congestive) heart failure; E11.10 Type 2 diabetes mellitus with ketoacidosis without coma; J18.9 Pneumonia, unspecified organism; I27.20 Pulmonary hypertension, unspecified; I13.0 Hypertensive heart and chronic kidney disease with heart failure and stage 1 through stage 4 chronic kidney disease, or unspecified chronic kidney disease; Z66 Do not resuscitate; E11.65 Type 2 diabetes mellitus with hyperglycemia; N18.30 Chronic kidney disease, stage 3 unspecified; E11.22 Type 2 diabetes mellitus with diabetic chronic kidney disease; E66.9 Obesity, unspecified; I42.9 Cardiomyopathy, unspecified; I44.7 Left bundle-branch block, unspecified; Z20.822 Contact with and (suspected) exposure to COVID-19; Z68.41 Body mass index [BMI] 40.0-44.9, adult
CPT/HCPCS: 31500; 36415; 71045; 76770; 80048; 80053; 82803; 82948; 83036; 83605; 83690; 83735; 83880; 84100; 84484; 85025; 85610; 85730; 87040; 87081; 92950; 93005; 94640; 94660; 96365; 96375; 96376; 99285; J0171; J0456; J0461; J0696; J1265; J1644; J1815; J1940; J2060; J2185; J2270; J3370; J3475; J3490; J7030; J7060; Q0092